=== PATIENT | male | born 1960 | race Caucasian/White ===

== ENCOUNTER 2023-05-26 14:03 | Inpatient (IN) | payer MEDICARE, MEDICAID ==
[~2023-05-26] VITALS: Ht 190.5 cm; Wt 64.4 kg
[2023-05-26 14:41] LABS: BASOPHILS # (AUTO) 0.1 K/UL (0.0-0.2); BASOPHILS % (AUTO) 1.7 % (0.0-2.0); EOSINOPHILS # (AUTO) 0.4 K/uL (0.0-0.7); EOSINOPHILS % (AUTO) 7.9 % (0.0-7.0); HEMATOCRIT 31.5 % (36.7-47.1); HEMOGLOBIN 10.3 g/dL (12.5-16.3); LYMPHOCYTES % (AUTO) 52.7 % (20.5-51.5); MEAN CORPUSCULAR HEMOGLOBIN 32.3 uug (23.8-33.4); MEAN CORPUSCULAR HGB CONC 33 g/dL (32.5-36.3); MEAN CORPUSCULAR VOLUME 98.6 fL (73.0-96.2); MONOCYTES # (AUTO) 0.7 K/uL (0.1-1.30); MONOCYTES % (AUTO) 13.2 % (0.0-11.0); NEUTROPHILS # (AUTO) 1.4 K/uL (1.8-8.9); NEUTROPHILS % (AUTO) 24.5 % (38.5-71.5); PLATELET COUNT (AUTO) 227 K/uL (152-348); RED CELL DISTRIBUTION WIDTH 17.3 % (12.1-16.2); WHITE BLOOD COUNT (AUTO) 5.7 K/uL (3.6-10.2)
[2023-05-26 14:48] LABS: DIFFERENTIAL COMMENT 1
[2023-05-26 14:56] LABS: ALBUMIN 1.7 g/dL (3.4-5.0); BILIRUBIN,TOTAL 0.7 mg/dL (0.2-1.0); CALCIUM 8.7 mg/dL (8.5-10.1); POTASSIUM 3.9 mmol/L (3.5-5.1)
[2023-05-26 14:58] LABS: CREATININE 11.4 mg/dL (0.6-1.3)
[2023-05-26] MEDS ORDERED: REMEDY ESSENTIAL ZINC PASTE 113 GM TP PRN ×2 (17:45)
[2023-05-26] MEDS ORDERED: ACETAMINOPHEN 325 MG TABLET PO PRN ×2 (17:45)
[2023-05-26] MEDS ORDERED: MAGNESIUM HYDROXIDE 30 ML LIQUID UDC PO PRN (17:45)
[2023-05-26] MEDS ORDERED: ONDANSETRON 4 MG/2 ML VIAL IV PRN ×2 (17:45)
[2023-05-26] MEDS ORDERED: HYDROCODONE/APAP 5-325MG TABLET ONE (20:59)
[2023-05-26 23:35] VITALS: BP 129/69; TEMP 97.4; O2SAT 95
[2023-05-27] VITALS (8 sets, daily range): BP systolic 99–141; BP diastolic 46–72; TEMP 96–98.4; O2SAT 94–97
[2023-05-27 07:11] LABS: BASOPHILS # (AUTO) 0.1 K/UL (0.0-0.2); BASOPHILS % (AUTO) 2.6 % (0.0-2.0); EOSINOPHILS # (AUTO) 0.7 K/uL (0.0-0.7); EOSINOPHILS % (AUTO) 14.3 % (0.0-7.0); HEMATOCRIT 27.5 % (36.7-47.1); HEMOGLOBIN 9.1 g/dL (12.5-16.3); LYMPHOCYTES # (AUTO) 2.1 K/uL (0.8-4.8); LYMPHOCYTES % (AUTO) 42.7 % (20.5-51.5); MEAN CORPUSCULAR HEMOGLOBIN 33.1 uug (23.8-33.4); MEAN CORPUSCULAR HGB CONC 33 g/dL (32.5-36.3); MEAN CORPUSCULAR VOLUME 100.3 fL (73.0-96.2); MONOCYTES # (AUTO) 0.8 K/uL (0.1-1.30); MONOCYTES % (AUTO) 17.2 % (0.0-11.0); NEUTROPHILS # (AUTO) 1.1 K/uL (1.8-8.9); NEUTROPHILS % (AUTO) 23.2 % (38.5-71.5); PLATELET COUNT (AUTO) 208 K/uL (152-348); RED BLOOD CELL COUNT(AUTO) 2.75 MIL/uL (4.06-5.63); RED CELL DISTRIBUTION WIDTH 16.9 % (12.1-16.2); WHITE BLOOD COUNT (AUTO) 4.8 K/uL (3.6-10.2)
[2023-05-27 07:23] LABS: DIFFERENTIAL COMMENT 1
[2023-05-27 07:39] LABS: ALBUMIN 1.6 g/dL (3.4-5.0); BILIRUBIN,TOTAL 0.6 mg/dL (0.2-1.0); CALCIUM 8.5 mg/dL (8.5-10.1); MAGNESIUM 3.6 mg/dL (1.8-2.4); POTASSIUM 4.4 mmol/L (3.5-5.1); TOTAL PROTEIN, SERUM 6.3 g/dL (6.4-8.2)
[2023-05-27 08:22] LABS: CREATININE 11.8 mg/dL (0.6-1.3); PHOSPHOROUS 8.7 mg/dL (2.5-4.9)
[2023-05-27 12:21] LABS: LYMPHOCYTES % (MANUAL) 42 % (20-40); MONOCYTES % (MANUAL) 17 % (2-10); NEUTROPHILS % (MANUAL) 23 % (42-75)
[2023-05-27 12:22] LABS: ANISOCYTOSIS 1+; BASOPHILS % (MANUAL) 2 % (0-2); EOSINOPHILS % (MANUAL) 16 % (0-8); PLATELET ESTIMATE ADEQUATE
[2023-05-27] MEDS: HYDROCODONE/APAP 5-325MG TABLET PO PRN (14:03)
[2023-05-27] MEDS ORDERED: ALLO100T56 PO (15:46)
[2023-05-27] MEDS ORDERED: ACET325C7 PO (15:46)
[2023-05-27] MEDS ORDERED: CLOP75TA33 PO (15:47)
[2023-05-27] MEDS ORDERED: VALP250S22 PO (15:49)
[2023-05-27] MEDS ORDERED: HEPA500034 SQ (15:50)
[2023-05-27] MEDS ORDERED: DOCU50LI PO (15:50)
[2023-05-27] MEDS ORDERED: LACT10SO58 PO (15:51)
[2023-05-27] MEDS ORDERED: MAGN250T10 PO (15:52)
[2023-05-27] MEDS ORDERED: MIDO10TA PO (15:54)
[2023-05-27] MEDS ORDERED: PANT40TA49 PO (15:56)
[2023-05-27] MEDS ORDERED: VIT1TABL46 PO (15:58)
[2023-05-27] MEDS ORDERED: SEVE0.8P3 PO (16:00)
[2023-05-27] MEDS ORDERED: RIFA550T PO (16:11)
[2023-05-27] MEDS: HEPARIN SODIUM,PORCINE 5,000 UNITS/ML VIAL SQ SCH (21:00)
[2023-05-28 04:34] VITALS: BP 116/62; TEMP 97.5; O2SAT 98
[2023-05-28 07:30] VITALS: BP 114/57; TEMP 97.9; O2SAT 95
[2023-05-28 08:06] LABS: HEPATITIS B SURFACE AB, QUAL Reactive (.); HEPATITIS B SURFACE AG Negative (Negative)
[2023-05-28] MEDS: HEPARIN SODIUM,PORCINE 5,000 UNITS/ML VIAL SQ SCH ×2 (08:10→21:59)
[2023-05-28 08:41] LABS: CALCIUM 8.1 mg/dL (8.5-10.1); CREATININE 7.2 mg/dL (0.6-1.3); POTASSIUM 3.5 mmol/L (3.5-5.1)
[2023-05-28] MEDS: CLOPIDOGREL 75 MG TABLET PO SCH (09:37)
[2023-05-28 12:07] VITALS: BP 107/59; TEMP 97.8; O2SAT 97
[2023-05-28 16:00] VITALS: BP 123/59; TEMP 98.1; O2SAT 97
[2023-05-29 06:25] VITALS: BP 111/52; TEMP 98; O2SAT 95
[2023-05-29 08:06] LABS: HEPATITIS B SURFACE AB, QUAL Reactive (.); HEPATITIS B SURFACE AG Negative (Negative)
[2023-05-29] MEDS: HEPARIN SODIUM,PORCINE 5,000 UNITS/ML VIAL SQ SCH ×2 (09:00→09:59)
[2023-05-29] MEDS: HYDROCODONE/APAP 5-325MG TABLET PO PRN (09:57)
[2023-05-29] MEDS: CLOPIDOGREL 75 MG TABLET PO SCH (09:58)
[2023-05-29] MEDS ORDERED: HYDROCODONE/APAP 5-325MG TABLET PO PRN (10:52)
== END 2023-05-29 14:33 | DRG 291 ==
LOC: ER 14:03 → TELE3 22:39 → MEDSURG3 05-27 11:18
PROVIDERS: ADMIT Internal Medicine; ATTEND Internal Medicine
PROC: 5A1D70Z Performance of Urinary Filtration, Intermittent, Less than 6 Hours Per Day (ICD-10-PCS; principal; 2023-05-27)
DX: I13.2 Hypertensive heart and chronic kidney disease with heart failure and with stage 5 chronic kidney disease, or end stage renal disease (principal); I50.31 Acute diastolic (congestive) heart failure; N18.6 End stage renal disease; J98.11 Atelectasis; E79.0 Hyperuricemia without signs of inflammatory arthritis and tophaceous disease; R62.7 Adult failure to thrive; F20.9 Schizophrenia, unspecified; Z91.158 Patient's noncompliance with renal dialysis for other reason; Z91.119 Patient's noncompliance with dietary regimen due to unspecified reason; D63.1 Anemia in chronic kidney disease; E78.5 Hyperlipidemia, unspecified; F41.9 Anxiety disorder, unspecified; I48.0 Paroxysmal atrial fibrillation; K74.60 Unspecified cirrhosis of liver; Z86.73 Personal history of transient ischemic attack (TIA), and cerebral infarction without residual deficits; Z74.01 Bed confinement status; Z79.899 Other long term (current) drug therapy; I25.10 Atherosclerotic heart disease of native coronary artery without angina pectoris; Z99.2 Dependence on renal dialysis; S81.812A Laceration without foreign body, left lower leg, initial encounter; S81.811A Laceration without foreign body, right lower leg, initial encounter; X58.XXXA Exposure to other specified factors, initial encounter; Y92.129 Unspecified place in nursing home as the place of occurrence of the external cause; L98.9 Disorder of the skin and subcutaneous tissue, unspecified
CPT/HCPCS: 36415; 70030-TC; 71045; 83735; 83970; 84100; 84484; 85025; 86706; 87340; 90937; 93005; 93307; A4663; A6209; G0378; J1644; J2405